=== PATIENT | male | born 1960 | race Caucasian/White ===

== ENCOUNTER 2021-02-28 14:38 | Outpatient (CLI) | payer BC | END 2021-02-28 14:39 | disposition home or self-care (01) | LOC: CSHRAD 14:38 | PROVIDERS: ATTEND Family Medicine Sports Medicine | DX: Z01.818 Encounter for other preprocedural examination (principal); M48.02 Spinal stenosis, cervical region | CPT/HCPCS: 71046 ==

== ENCOUNTER 2021-06-11 12:16 | Outpatient (CLI) | payer BC | END 2021-06-11 12:17 | disposition home or self-care (01) | LOC: CSHRAD 12:16 | PROVIDERS: ATTEND Family Medicine Sports Medicine | DX: Z01.818 Encounter for other preprocedural examination (principal) | CPT/HCPCS: 71046 ==

== ENCOUNTER 2021-10-15 13:49 | Outpatient (CLI) | payer BC | END 2021-10-15 13:50 | disposition home or self-care (01) | LOC: CSHMRI 13:49 | PROVIDERS: ATTEND Orthopaedic Surgery Orthopaedic Surgery of the Spine | DX: M54.51 Vertebrogenic low back pain (principal); Z98.890 Other specified postprocedural states; M48.061 Spinal stenosis, lumbar region without neurogenic claudication | CPT/HCPCS: 72148 ==

== ENCOUNTER → 2022-09-28 | Day surgery (SDC) | payer BC ==
[~2022-09-28] MED LIST: Iopamidol-M 200 41% 10 ML VIAL FS ONE; Lidocaine 1% PF 5 ML VIAL ONE; Sodium Bicarbonate 2.5 MEQ/5 ML VIAL ONE
[2022-09-28 15:11] VITALS: BP 172/90; TEMP 98.5
== END ==
LOC: CSHRAD 12:02
PROVIDERS: ATTEND Orthopaedic Surgery Orthopaedic Surgery of the Spine
PROC: B02BYZZ Computerized Tomography (CT Scan) of Spinal Cord using Other Contrast (ICD-10-PCS; principal; 2022-09-28)
DX: M47.26 Other spondylosis with radiculopathy, lumbar region (principal); M54.51 Vertebrogenic low back pain; G95.9 Disease of spinal cord, unspecified; Z98.1 Arthrodesis status
CPT/HCPCS: 62304; 72132; Q9966